=== PATIENT | male | born 1980 | race Caucasian/White ===

== ENCOUNTER 2017-11-16 13:47 | Emergency (ER) | payer BC ==
[2017-11-16] MEDS ORDERED: Ibuprofen 200 MG Tab PO ONE (14:01)
--- NOTE | 2017-11-16 14:05 | EDM.PDOC ---
ED HPI GENERAL MEDICAL PROBLEM - General Chief Complaint: Lower Extremity Injury/Pain Stated Complaint: left ankle pain s/p fall from ladder Time Seen by Provider: 11/16/17 13:56 Source of Information: Reports: Patient History Limitations: Reports: No Limitations - History of Present Illness INITIAL COMMENTS - FREE TEXT/NARRATIVE: Norberto is a 37 year old male who presents to the ER with complaints of left ankle pain and swelling after falling off his roof. He reports he was on a ladder at the top of the roof, when the ladder slipped out from under him and he fell to the ground. He reports he landed on his left heel and had instant pain and swelling. Denies injury elsewhere. Denies hitting his head. Denies LOC. He describes the pain as sharp constant and rates it a 7/10. He did not take anything for the pain prior to ER presentation. Pain is worsened with movement. He reports he is unable to bear weight on it. He can move his toes. Denies numbness and tingling. He reports it happened about half hour prior to ER presentation. Onset: Today Onset Date: 11/16/17 Onset Time: 13:30 Duration: Constant Location: Reports: Lower Extremity, Left Quality: Reports: Sharp Severity: Severe Improves with: Reports: None Worsens with: Reports: Movement Context: Reports: Activity Associated Symptoms: Reports: No Other Symptoms. Denies: Confusion, Chest Pain , Cough, cough w sputum, Diaphoresis, Fever/Chills, Headaches, Loss of Appetite , Nausea/Vomiting, Rash, Seizure, Shortness of Breath, Syncope, Weakness Left Ankle Pain Score (Numeric/FACES): 7 - Related Data Allergies Allergy/AdvReac Type Severity Reaction Status Date / Time No Known Allergies Allergy Verified 11/16/17 13:57 Home Meds: Home Meds . [No Known Home Meds] 11/16/17 [History] Social & Family History - Tobacco Use Smoking Status *Q: Never Smoker - Recreational Drug Use Recreational Drug Use: No Review of Systems - Review of Systems Review Of Systems: ROS reveals no pertinent complaints other than HPI. ED EXAM, GENERAL - Physical Exam Exam: See Below Exam Limited By: No Limitations General Appearance: Alert, WD/WN, No Apparent Distress Peripheral Pulses: 2+: Dorsalis Pedis (L) Extremities: Normal Capillary Refill, Joint Swelling (lateral aspect and heel of Left ankle), Leg Pain (left ankle), Limited Range of Motion (left ankle). No : Slow Capillary Refill, Increased Warmth, Redness Neurological: Alert, Oriented, CN II-XII Intact, Normal Cognition, Normal Gait, Normal Reflexes, No Motor/Sensory Deficits Psychiatric: Normal Affect, Normal Mood Skin Exam: Warm, Dry, Intact, Normal Color, No Rash Course - Vital Signs Last Recorded V/S: Last Vital Signs Temp 97.8 F 11/16/17 13:48 Pulse 57 L 11/16/17 13:48 Resp 20 11/16/17 13:48 BP 138/88 11/16/17 13:48 Pulse Ox 99 11/16/17 13:48 - Orders/Labs/Meds Meds: Medications Discontinued Medications Generic Name Dose Route Start Last Admin Trade Name Ab PRN Reason Stop Dose Admin Ibuprofen 600 mg 11/16/17 14:01 11/16/17 14:09 Motrin PO 11/16/17 14:02 600 mg ONETIME ONE Administration - Re-Assessments/Exams Free Text/Narrative Re-Assessment/Exam: Xray results discussed with patient and his . Radiologist report called to provider. Does not show acute fracture. Departure - Departure Time of Disposition: 14:47 Disposition: Home, Self-Care 01 Condition: Good Clinical Impression: Left ankle effusion Left ankle sprain Qualifiers: Encounter type: initial encounter Involved ligament of ankle: unspecified ligament Qualified Code(s): S93.402A - Sprain of unspecified ligament of left ankle, initial encounter - Discharge Information Instructions: Crutch Use, [id number], Ankle Sprain, [id number] Referrals: PCP,None [Primary Care Provider] - Forms: ED Department Discharge Additional Instructions: Ice left ankle for 20 minutes at a time 3 x per day until swelling and pain resolve Ibuprofen as needed for pain Rest and elevate ankle as much as possible Crutches until able to bear weight without significant pain Keep Freddy wrap on until swelling resolves Return to clinic if pain and swelling do not resolve or unable to bear weight over course of next 2 weeks
== END 2017-11-16 15:00 | disposition home or self-care (01) ==
LOC: CC.ED 13:47
DX: S93.402A Sprain of unspecified ligament of left ankle, initial encounter (principal); M25.472 Effusion, left ankle; W11.XXXA Fall on and from ladder, initial encounter
CPT/HCPCS: 73610; 99283; A9270

== ENCOUNTER 2020-03-19 10:59 | Emergency (ER) | payer BC ==
[2020-03-19] MEDS ORDERED: Cyclobenzaprine 10 MG Tab PO ONE (11:00)
[2020-03-19] MEDS ORDERED: predniSONE 20 MG Tab PO ONE (11:00)
[2020-03-19] MEDS ORDERED: Ketorolac 10 MG Tab PO ONE (11:00)
[2020-03-19] MEDS ORDERED: Acetaminophen/oxyCODONE 325-5 MG Tab PO ONE ×2 (11:00→11:34)
--- NOTE | 2020-03-19 11:42 | EDM.PDOC ---
ED HPI GENERAL MEDICAL PROBLEM - General Chief Complaint: Back Pain or Injury Stated Complaint: Back pain Time Seen by Provider: 03/19/20 11:27 Source of Information: Reports: Patient History Limitations: Reports: No Limitations - History of Present Illness INITIAL COMMENTS - FREE TEXT/NARRATIVE: Patient to the emergency department complaint of severe lower back pain the back pain is more in the left side and goes down into the left leg. The patient advises that 1 week ago on Saturday he was at work and he jumped off or hopped off the back of a truck and developed severe pain at that point. The patient advises on Saturday past that he did go see a chiropractor which he had adjustments he was advised that his hips and spine were stable however it appeared as if his tailbone was dislocated and that was adjusted. The patient went back on Saturday had the same adjustment and then he was also seen yesterday had more adjustments as well as today having adjustments. The patient advises that since the accident he has had decreased ability to have a bowel movement. The patient denies any numbness in his back he denies any numbness into his lower extremities he denies any perianal rectal numbness he denies any problems with erections. He denies any problems voiding. The patient denies any fever chills he denies any other injuries or symptoms no fever no chills. 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 adjustments) Lower Back Pain Score (Numeric/FACES): 7 - Related Data Allergies Allergy/AdvReac Type Severity Reaction Status Date / Time No Known Allergies Allergy Verified 03/19/20 11:01 Home Meds: Home Meds Cholecalciferol (Vitamin D3) [Vitamin D3] 1,000 unit PO DAILY 03/19/20 [History] Ketorolac [Toradol] 10 mg PO TID PRN 5 Days #15 tab 03/19/20 [Rx] Multivitamin 1 tab PO DAILY 03/19/20 [History] methocarbamoL [Robaxin] 500 mg PO TID 10 Days #30 tab 03/19/20 [Rx] predniSONE [Prednisone] 50 mg PO DAILY 3 Days #3 tablet 03/19/20 [Rx] Past Medical History - Past Health History Medical/Surgical History: Denies Medical/Surgical History - Past Surgical History HEENT Surgical History: Reports: Other (See Below) Other HEENT Surgeries/Procedures: wisdom teeth removal Musculoskeletal Surgical History: Reports: Other (See Below) Other Musculoskeletal Surgeries/Procedures:: scope of right elbow. chronic back aches Social & Family History - Family History Family Medical History: Noncontributory - Tobacco Use Smoking Status *Q: Never Smoker Second Hand Smoke Exposure: No - Caffeine Use Caffeine Use: Reports: None - Recreational Drug Use Recreational Drug Use: No ED ROS GENERAL - Review of Systems Review Of Systems: See Below Constitutional: Reports: No Symptoms. Denies: Fever, Chills, Weakness HEENT: Reports: No Symptoms Respiratory: Reports: No Symptoms Cardiovascular: Reports: No Symptoms GI/Abdominal: Reports: Constipation. Denies: Abdominal Pain, Diarrhea, Distension, Nausea, Stool Incontinence, Vomiting : Reports: No Symptoms. Denies: Dysuria, Frequency, Pain, Urgency, Urinary Retention Musculoskeletal: Reports: Back Pain. Denies: Neck Pain Skin: Reports: No Symptoms. Denies: Bruising, Rash, Erythema Neurological: Reports: Difficulty Walking (No difficulty walking however he has pain). Denies: Headache, Numbness, Tingling, Trouble Speaking, Weakness Psychiatric: Reports: No Symptoms ED EXAM,LOWER BACK PAIN/INJURY - Physical Exam Exam: See Below Exam Limited By: No Limitations General Appearance: Alert, WD/WN, No Apparent Distress Ears: Normal External Exam Nose: Normal Inspection Throat/Mouth: Normal Inspection, Normal Voice, No Airway Compromise Head: Atraumatic, Normocephalic Neck: Normal Inspection, Supple, Non-Tender, Full Range of Motion Respiratory/Chest: No Respiratory Distress, Lungs Clear, Normal Breath Sounds, Chest Non-Tender Cardiovascular: Normal Peripheral Pulses, Regular Rate, Rhythm, No Murmur GI/Abdominal: Normal Bowel Sounds, Soft, Non-Tender (Male) Exam: No Hernia, Normal Inspection, Normal Prostate, Circumcised, Cremasteric Reflex (Normal). No: Hernia, Inguinal Lymphadenopathy, Testicular Tenderness (L), Testicular Tenderness (R), Urethral Discharge Rectal (Males) Exam: Decreased Rectal Tone. No: Normal Rectal Tone (Appears to be somewhat weak rectal tone), Hemorrhoids, Tenderness Back Exam: Normal Inspection, Decreased Range of Motion (Secondary to pain), Muscle Spasm. No: Full Range of Motion (Patient has inability to have full range of motion secondary to pain pain is more in the left lower back, there are spasms noted. There is no specific spine tenderness with palpation), Vertebral Tenderness Extremities: Normal Inspection, Normal Range of Motion, Non-Tender, No Pedal Edema, Normal Capillary Refill Neurological: Alert, Normal Mood/Affect, No Motor/Sensory Deficits, Oriented x 3 DTR - Lower Extremities: 1+: Knee (L), 2+: Knee (R) Psychiatric: Normal Affect, Normal Mood Skin Exam: Warm, Dry, Intact, Normal Color Course - Vital Signs Text/Narrative:: 1220 the patient was evaluated in the emergency department, the patient was given Percocet 5/325 mg p.o. x1 which at this point seems to be helping. The patient has had a CT of the lumbar spine completed and I am currently awaiting results of the CT by the radiologist. Once the radiologist calls with results a disposition will be made at that time. I have updated the patient on what we are still waiting on. 1240 the radiologist in [place] did call and we discussed the patient's CT of the lumbar spine. The radiologist advise he does not find anything acute, see his notes for complete details this was a verbal report. I also asked him directly if he seen anything that suggested cauda equina and he advised that he did not. He does advise if the patient continues to have symptoms that an MRI is suggested. I did discuss all this with the patient and advised him that he will need to follow back up with his PCP where he advises he typically sees Sylvia Rankin NP, and advised him that he need to follow-up with her this week to schedule possible MRI. I further advised him if he developed any symptoms such as worse problems having a bowel movement, any numbness or tingling in his back or into his lower extremities if he developed any perianal rectal numbness or if he develop any problems having erections or voiding that he is to return to the emergency department immediately. He did verbalize understanding. I did discuss in detail about cauda equina and the concern for that and the reasoning for the CT as MRIs not available. He agrees. The patient will be discharged with Flexeril 10 mg 3 times daily for today and tomorrow as Robaxin is not available, I will look chronically prescribe Robaxin 500 mg 3 times daily for 10 days will also give the patient Percocet 5/325 mg 1 every 6 hours as needed for pain x2 days for more severe pain and he will have Toradol 10 mg 3 times daily as needed for less severe pain. The patient is starting to have relief with his back pain with the Percocet in the emergency department. Last Recorded V/S: Last Vital Signs Temp 36.3 C 03/19/20 10:59 Pulse 105 H 03/19/20 10:59 Resp 18 03/19/20 10:59 BP 129/73 03/19/20 10:59 Pulse Ox 96 03/19/20 10:59 - Orders/Labs/Meds Orders: Active Orders 24 hr Category Date Time Status Lumbar Spine wo Cont [CT] Stat Exams 03/19/20 11:31 Taken Meds: Medications Discontinued Medications Generic Name Dose Route Start Last Admin Trade Name Freq PRN Reason Stop Dose Admin Oxycodone/Acetaminophen 1 tab 03/19/20 11:34 03/19/20 11:40 Percocet 325-5 Mg PO 03/19/20 11:35 1 tab ONETIME ONE Administration Departure - Departure Time of Disposition: 12:51 Disposition: Home, Self-Care 01 Condition: Good Clinical Impression: Lumbar spine strain, Lumbar back pain with radiculopathy affecting left lower extremity - Discharge Information *PRESCRIPTION DRUG MONITORING PROGRAM REVIEWED*: Not Applicable *COPY OF PRESCRIPTION DRUG MONITORING REPORT IN PATIENT KIMBER: Not Applicable Prescriptions: Ketorolac [Toradol] 10 mg PO TID PRN 5 Days #15 tab PRN Reason: Pain (Moderate 4-6) methocarbamoL [Robaxin] 500 mg PO TID 10 Days #30 tab predniSONE [Prednisone] 50 mg PO DAILY 3 Days #3 tablet Instructions: Pain Medicine Instructions, [id number], Lumbar Strain, Lumbosacral Radiculopathy Referrals: Sylvia Rankin TREASURY ANALYST [Primary Care Provider] - Forms: ED Department Discharge Additional Instructions: Rest Warm moist heat off-and-on frequently to your lower back Toradol 10 mg 3 times a day as needed for pain Percocet 5/325 mg 1 every 6 hours as needed for pain for more severe pain Prednisone 50 mg once a day for 5 days Follow-up with your family doctor this week, call Saturday for an appointment time for further evaluation and treatment and possible MRI Return to the emergency department sooner if worse or any problems as discussed Sepsis Event Note - Evaluation Sepsis Screening Result: No Definite Risk - Focused Exam Vital Signs: Vital Signs Temp Pulse Resp BP Pulse Ox 03/19/20 10:59 36.3 C 105 H 18 129/73 96 Date Exam was Performed: 03/19/20 Time Exam was Performed: 12:47 - Problem List & Annotations (1) Lumbar back pain with radiculopathy affecting left lower extremity SNOMED Code(s): 842221052, 522245566, 336561788 Code(s): M54.16 - RADICULOPATHY, LUMBAR REGION Status: Acute Priority: High Current Visit: Yes (2) Lumbar spine strain SNOMED Code(s): 563959362 Code(s): S39.012A - STRAIN OF MUSCLE, FASCIA AND TENDON OF LOWER BACK, INIT Status: Acute Priority: Medium Current Visit: Yes Qualifiers: Encounter type: initial encounter Qualified Code(s): S39.012A - Strain of muscle, fascia and tendon of lower back, initial encounter - Problem List Review Problem List Initiated/Reviewed/Updated: Yes - My Orders Last 24 Hours: My Active Orders 03/19/20 11:31 Lumbar Spine wo Cont [CT] Stat - Assessment/Plan Last 24 Hours: My Active Orders 03/19/20 11:31 Lumbar Spine wo Cont [CT] Stat Plan: See above for details The patient's past medical history, past surgical history, past family medical history and social history was reviewed see the nursing notes for details
[2020-03-19] MEDS ORDERED: Take Home: Acetaminophen/oxyCODONE 325-5 MG, 2 Tab Pack PO ONE (12:56)
[2020-03-19] MEDS ORDERED: Take Home: Cyclobenzaprine 10 MG Tab, 4 Tab Pack PO ONE (12:56)
[2020-03-19] MEDS ORDERED: Take Home: Ketorolac 10 MG Tab, 4 Tab Pack PO ONE (12:57)
[2020-03-19] MEDS ORDERED: Take Home: predniSONE 20 MG, 2 Tab Pack PO ONE (12:57)
== END 2020-03-19 13:15 | disposition home or self-care (01) ==
LOC: CC.ED 10:59
DX: S39.012A Strain of muscle, fascia and tendon of lower back, initial encounter (principal); M54.16 Radiculopathy, lumbar region; X58.XXXA Exposure to other specified factors, initial encounter
CPT/HCPCS: 72131; 99283; A9270; J7512

== ENCOUNTER 2023-04-28 18:22 | Emergency (ER) | payer OTHER, BC | END 2023-04-28 19:30 | disposition home or self-care (01) | LOC: CC.ED 18:29 | DX: S40.011A Contusion of right shoulder, initial encounter (principal); S60.222A Contusion of left hand, initial encounter; S60.221A Contusion of right hand, initial encounter; V49.40XA Driver injured in collision with unspecified motor vehicles in traffic accident, initial encounter; Y92.410 Unspecified street and highway as the place of occurrence of the external cause | CPT/HCPCS: 71045; 73030-RT; 73110-LT; 73130-LT; 73130-RT; 99283; 99284 ==